=== PATIENT | female | born 1995 | race Two or more races ===

== ENCOUNTER 2018-06-10 15:05 | Emergency (ER) | payer MEDICAID ==
[~2018-06-10] VITALS: Ht 121.9 cm; Wt 54.4 kg
[2018-06-10] MEDS ORDERED: NKM (15:45)
--- NOTE | 2018-06-10 16:06 | Emergency Room Report ---
History of Present Illness General Chief Complaint: General Complaint Source: Patient Present Illness HPI 23-year-old female patient presents ER complaining of left breast pain 1 year. Reports bump in left breast present during this time, reports has not grown in size or changed in size. Reports pain began during discontinued since that time. Reports gave 5 months ago. Reports she is breast- feeding. Reports was seen by her doctor and told that the pain is related to milk production. Reports has not had imaging done. Denies fever, chest pain, shortness of breath, red streaking, rash, vomiting, weight loss. Denies other acute symptoms. Denies nipple discharge. Allergies: Coded Allergies: No Known Allergies (Unverified , 06/10/18) Patient History Past Medical History: see triage record Last Menstrual Period: 5 months ago Reviewed Nursing Documentation: PMH: Agreed; PSxH: Agreed Nursing Documentation-PMH Past Medical History: No Stated History Review of Systems All Other Systems: negative except mentioned in HPI Physical Exam Vital Signs Date Time Temp Pulse Resp B/P (MAP) Pulse Ox O2 Delivery O2 Flow Rate FiO2 06/10/18 15:42 99.2 73 16 104/73 99 Room Air 99.1 Sp02 EP Interpretation: reviewed, normal General Appearance: well appearing, no apparent distress, alert, GCS 15, non- toxic Head: normocephalic, atraumatic Eyes: bilateral eye normal inspection, bilateral eye PERRL ENT: hearing grossly normal, normal pharynx, no angioedema, normal voice, uvula midline, moist mucus membranes Neck: full range of motion Respiratory: lungs clear, normal breath sounds, no rhonchi, no respiratory distress, no accessory muscle use, no wheezing, speaking full sentences, other - left breast: 1-2 cm palpable nodule in 3 o'clock position, no axillary lymphadenopathy, no erythema or edema, no nipple discharge, no signs of infection Cardiovascular #1: regular rate, rhythm, no edema Psychiatric: mood/affect normal Skin: no rash Lymphatic: no adenopathy Medical Decision Making PA Attestation Dr. Santa is my supervising Physician whom patient management has been discussed with. Diagnostic Impression: Primary Impression: Breast nodule ER Course Pt. presents to the ED c/o left breast pain. Ddx considered but are not limited to cyst, nodule, mastitis, abscess, cellulitis, malignancy. Vital signs: are WNL, pt. is afebrile ER COURSE: breast exam performed with female nurse manager culinary. No erythema or edema, no signs of mastitis or cellulitis. No induration or fluctuance. No signs of infection, does not require imaging or antibiotics emergently in ER. Palpable nodule in left breast at 3 o'clock position, possible cyst, needs outpatient imaging and biopsy. Continue to breast-feed as instructed by NUTRITION HELPER specialist. Instructed patient to follow-up with primary care provider to get referral for Imaging and specialist referral. Contact insurance if needed to establish care. If unable to see primary care provider follow-up with [facility]. provide patient with contact information for free and low-cost healthcare clinics [facility] to follow-up with if unable to get referral from PCP. Discuss imaging with them at that time. DISCHARGE: Rx provided for Tylenol for pain symptoms. At this time pt is stable for d/c to home. Patient is resting comfortably, in no acute distress, nontoxic appearing, talking without difficulty. Patient to take medications as instructed Will provide with patient care instructions and any necessary prescriptions. Care plan and follow-up instructions provided. Patient instructed to follow-up with primary care provider in 3 - 5 days. Patient questions asked and answered. Patient reports understanding and agreement to treatment plan. ER precautions given. Patient instructed to return to ER immediately for any new or worsening of symptoms including but not limited to increasing SOB, persistent fever, chest pain, intractable vomiting. - Please note that this Emergency Department Report was dictated using [employer] crisis technology software, occasionally this can lead to erroneous entry secondary to interpretation by the dictation equipment. Last Vital Signs Date Time Temp Pulse Resp B/P (MAP) Pulse Ox O2 Delivery O2 Flow Rate FiO2 06/10/18 15:42 99.2 73 16 104/73 99 Room Air 99.1 Disposition: HOME, SELF-CARE Condition: Stable Scripts Acetaminophen* (TYLENOL EXTRA STRENGTH*) 500 Mg Tablet 500 MG ORAL Q8H PRN for Prn Headache/Temp > 101, #30 TAB 0 Refills Prov: Cliff Tang 06/10/18 Patient Instructions: Breast Cyst Additional Instructions: Followup with primary care provider in 3 -5 days. Request referral for breast imaging. Discuss referral to specialist. Take medications as directed. Take Tylenol for pain. Patient questions asked and answered. ER precautions given, patient instructed to return to ER immediately for any new or worsening of symptoms. Cliff Tang Jun 10, 2018 16:06
[2018-06-10] MEDS ORDERED: TYLENOL EXTRA500 MG ORAL (16:27)
[2018-06-10 16:37] VITALS: BP 122/71
== END 2018-06-10 16:37 | disposition home or self-care (01) ==
LOC: EMR 16:35
DX: N63.20 Unspecified lump in the left breast, unspecified quadrant (principal)
CPT/HCPCS: 99283